=== PATIENT | male | born 1950 | race African-American/Black ===

== ENCOUNTER → 2021-11-25 | Outpatient (CLI) | payer MEDICARE, MEDICAID ==
[2015-05-20 22:28] VITALS: BP 169/82
[~2021-11-25] MED LIST: AMLO10TA4 PO; ASPI325T8 PO; METF10007 PO; METO25TA2 PO; METO50TA6; NISO17TA3; SAXA5TAB PO; [UNRECOGNIZED DRUG - REMARK]; [UNRECOGNIZED DRUG - REMARK]
--- NOTE | 2021-11-25 09:54 | RAD ---
EXAMINATION: US RENAL BILAT INDICATION: 71 years, Male, decrease renal function. COMPARISON: None. TECHNIQUE: Grayscale and limited color Doppler evaluation of the kidneys and bladder was performed. FINDINGS: RIGHT KIDNEY: MEASURES: 10.9 x 4.6 x 4.2 cm. MORPHOLOGY/PARENCHYMA: Normal corticomedullary differentiation with no shadowing calculus or discrete masses. COLLECTING SYSTEM: No hydronephrosis. LEFT KIDNEY: MEASURES: 10.8 x 4.9 x 6.2 cm. MORPHOLOGY/PARENCHYMA: Normal corticomedullary differentiation with no shadowing calculus or discrete masses. COLLECTING SYSTEM: No hydronephrosis. URINARY BLADDER: Unremarkable. IMPRESSION: Normal renal ultrasound. Electronically signed by: Chilango Jin MD (11/25/2021 9:51 AM) [id number]
== END ==
LOC: US 09:13
PROVIDERS: ATTEND Family Medicine
DX: N28.9 Disorder of kidney and ureter, unspecified (principal)
CPT/HCPCS: 76770